=== PATIENT | male | born 2000 | race Caucasian/White ===

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

== ENCOUNTER 2019-08-27 11:29 | Outpatient (CLI) | payer BC, SELFPAY ==
--- NOTE | 2019-08-27 08:35 | DI.RAD_ITS ---
EXAM: XR TIB/FIB LT INDICATION: L TIB FRACTURE. COMPARISON: No exams were available for comparison TECHNIQUE: 2D digital imaging was performed. FINDINGS: An intramedullary harriet is noted through the tibia for fixation of the fracture in the mid to distal 3r d. A posterior splint is in place.
== END 2019-08-27 11:49 ==
PROVIDERS: PCP Specialist/Technologist Athletic Trainer; Visit Provider Student in an Organized Health Care Education/Training Program
DX: S82.225A Nondisplaced transverse fracture of shaft of left tibia, initial encounter for closed fracture (principal); V86.92XA Unspecified occupant of snowmobile injured in nontraffic accident, initial encounter
CPT/HCPCS: 73590

== ENCOUNTER 2019-08-30 10:41 | Outpatient (REF) | payer SELFPAY ==
[2019-08-30 19:28] LABS: Abs Immature Grans 0.02 k/cumm (0.0-0.09); Absolute Basophil Count 0.01 k/cumm (0.0-0.2); Absolute Eosinophil Count 0.22 k/cumm (0.0-0.7); Absolute Lymphocyte Count 0.91 k/cumm (1.2-3.4); Absolute Monocyte Count 0.78 k/cumm (0.11-0.7); Absolute Neutrophil Count 5.95 k/cumm (1.2-6.7); Basophils % 0.1; Eosinophils % 2.8; HCT 38.4 % (40.0-50.0); HGB 13.2 g/dL (13.5-17.5); Immature Grans % 0.3 %; Lymphocytes % 11.5; Mean Corp. HGB Concentration 34.4 g/dL (32.0-36.0); Mean Corpuscular Hemoglobin 28.6 pg (27.0-33.0); Mean Corpuscular Volume 83.3 fL (80-95); Mean Platelet Volume 10.9 fL (8.0-11.0); Monocytes % 9.9; Neutrophils % 75.4; Platelet Count 296 x1000/uL (130-400); RBC 4.61 m/cumm (4.50-6.00); RBC Distribution Width 12.9 % (11.8-14.1); White Blood Cell Count 7.89 k/cumm (4.4-10.8)
[2019-08-30 19:44] LABS: ALT 30 U/L (16-63); AST 12 U/L (15-37); Albumin 4.1 g/dL (3.4-5.0); Alkaline Phosphatase 49 U/L (46-116); Anion Gap 8.5 mmol/L (3-11); BUN 21 mg/dL (7-18); Bilirubin, Total 1.6 mg/dL (0.2-1.0); CO2 28.5 mmol/L (21.0-32.0); CREATININE 0.98 mg/dL (0.70-1.30); Calcium 9.1 mg/dL (8.5-10.1); Chloride 102 mmol/L (98-107); GGT 32 U/L (15-85); Glucose 89 mg/dL (74-106); Potassium 4.2 mmol/L (3.5-5.1); Sodium 139 mmol/L (136-145); Total Protein 7.1 g/dL (6.4-8.2)
== END 2019-08-30 11:01 ==
LOC: NCHCN 10:41
PROVIDERS: PCP Specialist/Technologist Athletic Trainer; Visit Provider Specialist/Technologist Athletic Trainer
DX: R16.1 Splenomegaly, not elsewhere classified (principal)
CPT/HCPCS: 80053; 82977; 85025

== ENCOUNTER 2019-10-04 16:54 | Outpatient (REF) | payer BC, SELFPAY ==
[2019-10-04 19:13] LABS: Abs Immature Grans 0.02 k/cumm (0.0-0.09); Absolute Basophil Count 0.01 k/cumm (0.0-0.2); Absolute Eosinophil Count 0.16 k/cumm (0.0-0.7); Absolute Lymphocyte Count 1.15 k/cumm (1.2-3.4); Absolute Monocyte Count 0.52 k/cumm (0.11-0.7); Absolute Neutrophil Count 6.59 k/cumm (1.2-6.7); Basophils % 0.1; Eosinophils % 1.9; HCT 41.2 % (40.0-50.0); Immature Grans % 0.2 %; Lymphocytes % 13.6; Mean Corpuscular Hemoglobin 28.5 pg (27.0-33.0); Mean Corpuscular Volume 83.9 fL (80-95); Mean Platelet Volume 11.3 fL (8.0-11.0); Monocytes % 6.2; Platelet Count 232 x1000/uL (130-400); RBC 4.91 m/cumm (4.50-6.00); RBC Distribution Width 13.5 % (11.8-14.1); White Blood Cell Count 8.45 k/cumm (4.4-10.8)
[2019-10-04 19:45] LABS: Diff Comment Agrees w/ Instrument
[2019-10-04 19:51] LABS: ALT 26 U/L (16-63); AST 17 U/L (15-37); Albumin 4.5 g/dL (3.4-5.0); Alkaline Phosphatase 70 U/L (46-116); Anion Gap 10.7 mmol/L (3-11); BUN 15 mg/dL (7-18); CO2 29.3 mmol/L (21.0-32.0); CREATININE 1.22 mg/dL (0.70-1.30); Calcium 8.9 mg/dL (8.5-10.1); Chloride 105 mmol/L (98-107); Glucose 107 mg/dL (74-106); Potassium 3.8 mmol/L (3.5-5.1); Sodium 145 mmol/L (136-145)
[2019-10-07 11:29] LABS: HBs Antibody, Qual Negative (See Note); HBs Antibody, Quant <3.1 mIU/mL (See Note); Hepatitis B Core Antibody Negative (Negative); Hepatitis B surface Ag Negative (Negative); Hepatitis C Ab w Rflx HCV PCR Negative (Negative)
[2019-10-07 11:55] LABS: Hep A Total Ab w Rflx IgM Negative (Negative)
[2019-10-08 11:25] LABS: EBV EA IgG Negative (Negative)
== END 2019-10-04 17:14 ==
LOC: NCHCN 16:54
PROVIDERS: PCP Specialist/Technologist Athletic Trainer; Visit Provider Specialist/Technologist Athletic Trainer
DX: R17 Unspecified jaundice (principal); R16.1 Splenomegaly, not elsewhere classified
CPT/HCPCS: 80053; 86663; 86704; 86706; 86709; 86803; 87340; 85025

== ENCOUNTER 2019-10-09 15:55 | Outpatient (CLI) | payer BC, SELFPAY ==
--- NOTE | 2019-10-09 15:45 | DI.RAD_ITS ---
EXAM: XR TIB/FIB LT CLINICAL HISTORY: Follow up TECHNIQUE: 2D digital imaging was performed. COMPARISON: XR TIB/FIB LT from 08/27/2019 FINDINGS: The splint has been removed. An intramedullary harriet is again noted through the tibia for fracture fi xation. There has been no change in fracture alignment. No new abnormalities are seen.
== END 2019-10-09 16:15 ==
PROVIDERS: PCP Specialist/Technologist Athletic Trainer; Visit Provider Student in an Organized Health Care Education/Training Program
DX: S82.225D Nondisplaced transverse fracture of shaft of left tibia, subsequent encounter for closed fracture with routine healing (principal)
CPT/HCPCS: 73590

== ENCOUNTER 2019-10-10 06:52 | Outpatient (CLI) | payer BC, SELFPAY ==
--- NOTE | 2019-10-10 08:05 | DI.US_ITS ---
EXAM: US ABDOMEN CLINICAL HISTORY: F/U CT, SPLENOMEGALY,R16.1 TECHNIQUE: Ultrasound performed using standard protocol. COMPARISON: CT CHEST/ABD/PEL WITH CONTRAST from 08/24/2019 FINDINGS: Liver is normal in size and echogenicity. No focal liver lesions or biliary dilatation is seen. Th e gallbladder has a normal appearance, without evidence of stones or wall thickening. The kidneys, a akira and pancreas are within normal limits. The spleen appears mildly prominent in appearance and me asures 11.9 x 5.7 x 6.6 cm, not significantly changed from the previous CT. No focal splenic lesions are seen. IMPRESSION: Stable mild splenomegaly with no focal abnormality. DATA REPOSITORY:
== END 2019-10-10 07:12 ==
PROVIDERS: PCP Specialist/Technologist Athletic Trainer; Visit Provider Specialist/Technologist Athletic Trainer
DX: R16.1 Splenomegaly, not elsewhere classified (principal)
CPT/HCPCS: 76700

== ENCOUNTER 2019-10-25 11:11 | Outpatient (CLI) | payer BC, SELFPAY ==
--- NOTE | 2019-10-25 11:00 | DI.RAD_ITS ---
EXAM: XR TIB/FIB LT CLINICAL HISTORY: NEW INJURY. TECHNIQUE: 2D digital imaging was performed COMPARISON: XR TIB/FIB LT from 10/09/2019 FINDINGS: BONES: There is increased callus formation about the left tibial fracture. There is again seen an in tramedullary harriet transfixing the tibial fracture. The orthopedic hardware appears stable. No new fr actures or dislocations are present. Visualized portion of knee and ankle joints are unremarkable. SOFT TISSUE: Normal. IMPRESSION: Continued healing of the left tibial fracture. DATA REPOSITORY: RADIATION DOSE DELIVERED:
== END 2019-10-25 11:31 ==
PROVIDERS: PCP Specialist/Technologist Athletic Trainer; Visit Provider Student in an Organized Health Care Education/Training Program
DX: S82.232D Displaced oblique fracture of shaft of left tibia, subsequent encounter for closed fracture with routine healing (principal)
CPT/HCPCS: 73590

== ENCOUNTER 2019-12-10 13:08 | Outpatient (CLI) | payer BC, SELFPAY ==
--- NOTE | 2019-12-10 11:01 | DI.RAD_ITS ---
EXAM: XR TIB/FIB LT CLINICAL HISTORY: fu xray of tib fib TECHNIQUE: COMPARISON: CR XR TIB/FIB LT from 10/25/2019 FINDINGS: Two views were obtained and show intramedullary harriet in place transfixing diaphyseal tibial fracture. There has been no gross interval change in alignment of the fracture fragments in comparison with pr evious examination of October 24. There may be slightly increased callus formation at the fracture s ite. IMPRESSION:
== END 2019-12-10 13:28 ==
PROVIDERS: PCP Specialist/Technologist Athletic Trainer; Visit Provider Student in an Organized Health Care Education/Training Program
DX: S82.232D Displaced oblique fracture of shaft of left tibia, subsequent encounter for closed fracture with routine healing (principal)
CPT/HCPCS: 73590

== ENCOUNTER 2020-02-18 11:07 | Outpatient (CLI) | payer BC, SELFPAY ==
--- NOTE | 2020-02-18 11:00 | DI.RAD_ITS ---
EXAM: XR TIB/FIB LT CLINICAL HISTORY: fu fracture. TECHNIQUE: 2D digital imaging was performed COMPARISON: CR XR TIB/FIB LT from 12/10/2019 FINDINGS: BONES: There is again seen an intramedullary harriet transfixing the left tibial fracture. The fracture line is still visualized. There does appear to be slight increased callus formation present. No new fracture or dislocation is seen. No bony destructive lesion is seen. Visualized portion of knee and ankle joints are unremarkable. SOFT TISSUE: Normal. IMPRESSION: Left tibial fracture as described above. DATA REPOSITORY: RADIATION DOSE DELIVERED:
== END 2020-02-18 11:27 ==
PROVIDERS: PCP Specialist/Technologist Athletic Trainer; Referring Provider Specialist/Technologist Athletic Trainer; Visit Provider Student in an Organized Health Care Education/Training Program
DX: S82.225D Nondisplaced transverse fracture of shaft of left tibia, subsequent encounter for closed fracture with routine healing (principal); X58.XXXD Exposure to other specified factors, subsequent encounter
CPT/HCPCS: 73590

== ENCOUNTER 2020-03-23 07:27 | Outpatient (CLI) | payer BC, SELFPAY ==
[2020-03-24 14:31] LABS: COVID-19 RT-PCR Result NEGATIVE (Negative)
== END 2020-03-23 07:47 ==
PROVIDERS: PCP Specialist/Technologist Athletic Trainer; Visit Provider Student in an Organized Health Care Education/Training Program
DX: Z11.59 Encounter for screening for other viral diseases (principal); Z01.818 Encounter for other preprocedural examination
CPT/HCPCS: U0003

== ENCOUNTER 2020-03-26 06:19 | Day surgery (SDC) | payer BC, SELFPAY ==
[2020-03-26] VITALS (8 sets, daily range): BP systolic 102–131; BP diastolic 51–88; PULSE 63–80; RESP 9–18; TEMP 36–36.7; O2SAT 94–99
[2020-03-26] MEDS: Lactated Ringers 1,000 ML 100 ML IV (07:08)
[2020-03-26] MEDS: ceFAZolin 2 GM/50 ML BAG IVPB (07:26)
--- NOTE | 2020-03-26 08:12 | DI.RAD_ITS ---
EXAM: XR TIB/FIB LT CLINICAL HISTORY: Fracture of tibial shaft, closed; painful hardware TECHNIQUE: COMPARISON: CR XR TIB/FIB LT from 02/18/2020 FINDINGS: C-arm fluoroscopy was utilized by Dr. Bui. Please see Dr. Bui procedure note. Hard copies show removal of 1 of 2 proximal fixation screws and both distal fixation screws associated with a ti bial intramedullary harriet. Fluoro time, 22.5 seconds. IMPRESSION: RADIATION DOSE DELIVERED: Total DLP
--- NOTE | 2020-03-26 08:31 | PDOC.DSDIS_ITS ---
Discharge Plan Disposition Patient Disposition: HOME Condition: Stable Discharge Details Reason For Visit: Left tibia fracture Attending Provider: Demetri Carpenter Primary Care Provider: Eli Anderson V Home Meds and New Rx's Prescriptions: New naproxen 250 mg tablet 250 - 500 mg PO BID PRN (Reason: Moderate pain or swelling) Qty: 30 RF: 0 aspirin 81 mg tablet,delayed release (DR/EC) 81 mg PO DAILY 14 Days Qty: 14 RF: 0 oxycodone 5 mg tablet 5 - 10 mg PO Q4H PRN (Reason: moderate to severe pain) Qty: 7 RF: 0 Continued ENRIQUETA 60 MG tablet 60 mg PO DAILY Qty: 30 RF: 0 Discharge Instructions Additional Instructions: Surgery: Left tibia locking screw removal x3, nail dynamization Activity: Weightbearing as tolerated in supportive work boot or cam walker boot. Recommend ice and elevation to minimize swelling, bruising, and discomfort. Prescriptions: Aspirin 81 mg take 1 daily to prevent a blood clot for 2 weeks Naproxen 250 mg take 1-2 every 12 hours with a meal as needed for moderate pain Oxycodone 5 mg take 1-2 every 4-6 hours as needed for severe pain You may use [id number] Tylenol (acetaminophen) as needed for mild pain. These pain medications may be taken all at once or in different combinations as needed. Also, recommend Colace (docusate) as a stool softener as surgery and pain medicine cause constipation. Dressings: Remove dressing after 3 days. May shower after 5 days. Cover the incisions with Band-Aids or leave them open to air. Follow-up: 10-[address] Carpenter Let us know right away if you develop any redness, drainage, fevers, chest pain, or trouble breathing. Do not drink alcohol or drive for at least 24 hours after anesthesia. Please call the office during business hours with any questions or concerns. Referrals: Demetri Carpenter MD [ [facility] STAFF PHYSICIAN] - Discharge Orders Discharge Orders: Discharge Order (Routine); Ordered 03/26/20 Ordered By: Demetri Carpenter DS: Diagnosis Discharge Diagnosis (1) Painful orthopaedic hardware: Status: Acute (2) Fracture of tibial shaft, closed: Status: Acute
--- NOTE | 2020-03-26 08:37 | ROE_ITS ---
Date of service: 03/26/20 Time of Service: 07:19 Operative Note Operative Note DATE OF PROCEDURE: 03/26/20 PRE-OP DIAGNOSIS: 1. Left distal tibial shaft fracture nonunion 2. Left tibia painful hardware POST-OP DIAGNOSIS: same PROCEDURE: Left tibia removal of deep hardware, CPT # 13069: Removal 3 out of 4 tibial nail locking screws for symptomatic hardware and nail dynamization SURGEON: Demetri Carpenter ANESTHESIA: GETA and local ESTIMATED BLOOD LOSS: 5 COMPLICATIONS: None Patient was transported to: PACU Patient's condition: stable Indications: Please see complete medical record for details. 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 The patient was positioned supine on the operating room table. All bony prominences were well-padded. Preoperative antibiotics were administered. The left leg was prepped and draped in the usual sterile fashion. The correct patient, procedure, and side of the procedure were all verified prior to incision. The planned 3 symptomatic locking screw heads were quite palpable proximally anterior centrally and medial distally. 0.25% bupivacaine containing epinephrine was infiltrated about each. AP and lateral fluoroscopy confirmed wh at looked like continued hypertrophic nonunion at the distal tibial shaft fracture site. Smaller stab incisions through each original incision were used to localize each screw head. Each head was cleaned of soft tissue. The screwdriver was inserted carefully fully into the screw heads in a collinear fashion prior to removing each screw in entirety. No purulence was encountered. There was minimal bleeding. Each bone tunnel was gently curetted. AP and lateral fluoroscopy confirmed complete removal of the desired 3 out of 4 tibial nonlocking screws. Each of the 3 stab incision sites was copiously irrigated with normal saline. Subcutaneous tissue was closed using 3-0 Monocryl in a buried interrupted fashion. Xeroform was placed over each followed by dry 4 x 4 gauze and the leg was wrapped in sterile soft roll and covered in Julián wrap. The patient awoke from anesthesia without complication and was transferred to the recovery room in a stable condition.
== END 2020-03-26 10:15 | disposition home or self-care (01) ==
PROVIDERS: PCP Family Medicine; Visit Provider Student in an Organized Health Care Education/Training Program
PROC: (CPT 20680; principal; 2020-03-26 07:30)
DX: T84.84XA Pain due to internal orthopedic prosthetic devices, implants and grafts, initial encounter (principal); S82.392K Other fracture of lower end of left tibia, subsequent encounter for closed fracture with nonunion
CPT/HCPCS: 20680; 73590; J0690; J1100; J1885; J2250; J2405; J2704

== ENCOUNTER 2020-04-08 14:48 | Outpatient (CLI) | payer BC, SELFPAY ==
--- NOTE | 2020-04-08 14:09 | DI.RAD_ITS ---
EXAM: XR TIB/FIB LT INDICATION: fu removal of hardware. COMPARISON: CR XR TIB/FIB LT from 02/18/2020 TECHNIQUE: 2D digital imaging was performed. FINDINGS: The intramedullary harriet is again noted through the tibia for fracture fixation. The screws in the dis nahum aspect of the tibia and one of the proximal screws have been removed. There has been continued h ealing of the distal tibial fracture. No new abnormalities are seen. DATA REPOSITORY: RADIATION DOSE DELIVERED:
== END 2020-04-08 15:08 ==
PROVIDERS: PCP Family Medicine; Referring Provider Family Medicine; Visit Provider Student in an Organized Health Care Education/Training Program
DX: S82.202D Unspecified fracture of shaft of left tibia, subsequent encounter for closed fracture with routine healing (principal); S82.402D Unspecified fracture of shaft of left fibula, subsequent encounter for closed fracture with routine healing
CPT/HCPCS: 73590

== ENCOUNTER 2020-05-20 15:10 | Outpatient (CLI) | payer BC, SELFPAY ==
--- NOTE | 2020-05-20 14:15 | DI.RAD_ITS ---
EXAM: XR TIB/FIB LT INDICATION: Left side. COMPARISON: CR XR TIB/FIB LT from 08/27/2019 CR XR TIB/FIB LT from 04/08/2020 TECHNIQUE: 2D digital imaging was performed. FINDINGS: There has been no change in fracture or hardware alignment. There has been a further increase in annemarie unt of bony bridging when compared with previous exam DATA REPOSITORY: RADIATION DOSE DELIVERED:
== END 2020-05-20 15:30 ==
PROVIDERS: PCP Family Medicine; Referring Provider Family Medicine; Visit Provider Student in an Organized Health Care Education/Training Program
DX: S82.292A Other fracture of shaft of left tibia, initial encounter for closed fracture (principal)
CPT/HCPCS: 73590

== ENCOUNTER 2023-03-24 18:23 | Outpatient (REF) | payer BC, SELFPAY ==
--- OUTSIDE RECORDS SUMMARY | 2023-03-24 18:27 | XMS_ITS | Continuity of Care Document ---
Author Name Unknown Organization [facility] Address [address] [place] [address] Encounter [facility]TT[facility] FIN NBR [id number] Date(s): 09/27/22 - 09/27/22 [facility] [address] [place] [address]- Encounter Diagnosis Encounter for other administrative examinations(Final) - Discharge Disposition: Home or Self Care Attending Physician: Sedrick Adams Admitting Physician: Sedrick Adams
[2023-03-24 19:05] LABS: ALT 35 U/L (16-63); AST 13 U/L (15-37); Albumin 4.2 g/dL (3.4-5.0); Alkaline Phosphatase 55 U/L (46-116); BUN 21 mg/dL (7-18); Bilirubin, Total 1.4 mg/dL (0.2-1.0); CREATININE 1.2 mg/dL (0.70-1.30); Calcium 9.3 mg/dL (8.5-10.1); Calculated LDL 61 mg/dL (<100); Chloride 105 mmol/L (98-107); Cholesterol 136 mg/dL (<200); Estimated GFR 87.15 (mL/min/1.73m2); Glucose 88 mg/dL (74-106); HDL Cholesterol 57 mg/dL (40-60); Potassium 4.2 mmol/L (3.5-5.1); Sodium 142 mmol/L (136-145); Triglyceride 91 mg/dL (<150)
== END 2023-03-24 18:24 | disposition home or self-care (01) ==
LOC: NCHCN 18:23
PROVIDERS: PCP Family Medicine; Visit Provider Nurse Practitioner Family
DX: Z00.00 Encounter for general adult medical examination without abnormal findings (principal); Z13.220 Encounter for screening for lipoid disorders; Z13.228 Encounter for screening for other metabolic disorders
CPT/HCPCS: 80053; 80061

== ENCOUNTER 2023-05-21 08:53 | Emergency (ER) | payer BC, SELFPAY ==
[2023-05-21 08:58] VITALS: BP 141/94; PULSE 91; RESP 18; TEMP 36.8; O2SAT 99
--- NOTE | 2023-05-21 08:58 | ED.GENADUL_ITS ---
Discharge Plan Disposition Patient Disposition: Home Discharge Details Clinical Impression: Vomiting and diarrhea Primary Care Provider: Eli Anderson V ED Provider: Mansi Garcia Home Meds and New Rx's Prescriptions: New ondansetron 8 mg tablet,disintegrating 8 mg PO Q8H PRN (Reason: nausea and vomiting) Qty: 15 0RF Continued ENRIQUETA 60 MG tablet 60 mg PO DAILY Qty: 30 Discharge Instructions Instructions: Acute Diarrhea (ED), Abdominal Pain (ED) Additional Instructions: Zofran 8 mg under tongue 3 times per day as needed for nausea. You may continue the Imodium as needed for diarrhea. Return to ED for belly pain localized to 1 area, fever of 100.4 or above, any other concerns. Recheck with your primary care doc tomorrow or Monday if not 100%. Medical Decision Making I did discuss appendicitis with the patient although his belly exam is completely benign. He has no rebound or guarding. On reexamination the patient's belly is the same. I will DC him home on Zofran to use as needed. He does feel much better. Of note, he took some Imodium yesterday and said he felt great yesterday. He will observe for localized abdominal pain, fever of 100.4 or above, any other concerns. Lab Data Lab results reviewed: Yes I reviewed the patient's lab results. Lab results narrative: Patient's urine specific gravity is elevated with positive ketones. He has low potassium and magnesium. These will be replenished. HPI General Date/Time Provider Initiated Documentation: 05/21/23 08:57 . HPI Narrative: This 22-year-old male patient presents with a chief complaint of vomiting and diarrhea. The patient tells me that a week ago Monday he ate at [employer]. Shortly thereafter he began having diarrhea. He says he is going 3-4 times a day and it is almost like stephanie water. There is no blood in the stool. He has no recent history of travel out of the country (except for [place] in February for his honeymoon), camping/drinking from streams, or recent antibiotics. He said he has intermittently had some nausea and vomiting and vomited this morning. He does have petechiae around his eyes from this. He says maybe about Monday he had some hot and cold chills before he vomited but that resolved after vomiting. He has not taken his temperature. He has some vague abdominal aching but no real localized pain. He has no pain in his back. He has no dysuria. He says he has had some URI symptoms for the past couple of weeks but these are getting better. He did see his doctor last Monday. He says that he sometimes gets diarrhea and does not feel well and they think he has a sensitivity to something but cannot figure out what it is. He says he has been having trouble sleeping i.e. is just somewhat restless. He has some vague dizziness. The patient does describe some anorexia and says he has had at least 1 day where he did not eat anything. Of note, the patient had a negative flu and COVID test done at his PCPs office on Monday. Related Data Home Medications Medication Instructions Recorded Confirmed Enriqueta 60 mg PO DAILY #30 tabs 11/08/12 05/21/23 ondansetron 8 mg disintegrating 8 mg PO Q8H PRN nausea and 05/21/23 tablet vomiting #15 tabs Previous Rx's Medication Instructions Recorded ondansetron 8 mg disintegrating 8 mg PO Q8H PRN nausea and 05/21/23 tablet vomiting #15 tabs Allergies Allergy/AdvReac Type Severity Reaction Status Date / Time No Known Allergies Allergy Verified 05/21/23 09:01 Review of Systems Constitutional Constitutional: Reports chills, Denies fever(s), Denies headache(s) and Denies weakness Eyes Eyes: Denies diplopia and Reports other (no redness) ENT Ears, Nose, Mouth, and Throat: Denies vertigo, Reports dizziness, Denies otalgia, Denies headache(s), Denies nasal congestion, Denies nasal discharge, Denies neck pain and Denies sore throat Cardiovascular Cardiovascular: Denies chest pain, Denies palpitations and Denies dyspnea Respiratory Respiratory: Denies cough and Denies dyspnea Gastrointestinal Gastrointestinal: Reports abdominal pain, Reports diarrhea, Reports nausea and Reports vomiting Genitourinary Genitourinary: Denies difficulty urinating and Denies dysuria Musculoskeletal Musculoskeletal: Denies myalgias, Denies muscle weakness, Denies neck pain, Denies numbness and Reports other (edema) Integumentary/Breasts Skin/Breast: Denies change in pigmentation and Denies rash Neurologic Neurologic: Denies vertigo, Reports dizziness, Denies headache(s), Denies numbness and Denies weakness Endocrine Endocrine: Denies palpitations PFSH All Active Problems Vomiting and diarrhea (Acute) Fracture of tibial shaft, closed (Acute 08/24/19) S/P ORIF: 08/24/2019 Painful orthopaedic hardware (Acute) S/P removal (03/26/2020 Surgical History S/P ORIF (open reduction internal fixation) fracture Family History Mother Allergic rhinitis Father Allergic rhinitis Grandfather No problems noted. Grandmother Asthma Social History Smoking/Tobacco Use Status: Never Smoking risk assessment performed?: Yes Alcohol Intake: current Alcohol Intake frequency: a few times a week Alcohol type: beer and hard liquor Drug use: Never Substance use type: does not use Current gender identity: male Do you feel safe at home: Yes Do you feel safe in your relationship?: Yes Additional Social history: Unable to assess privatley. Exam Const General: no acute distress, well developed, well groomed and not in acute distress Nutritional Appearance: well nourished Orientation: alert and oriented x3 HENMT Head: normocephalic and atraumatic Ears: external ears normal Mouth: oropharynx normal and moist mucous membranes Throat: posterior oropharynx normal Eyes Conjunctivae: conjunctivae normal Neck Neck: full ROM and supple Chest Chest: normal inspection of the chest Resp Effort & Inspection: normal respiratory effort Auscultation: clear to auscultation bilaterally Cardio Rate: regular rate Rhythm: regular rhythm Heart Sounds: no murmurs and no rubs GI Inspection: normal to inspection Palpation: soft, nontender and other (non distended) Auscultation: normal bowel sounds Skin General skin exam: no rashes or lesions noted and other (pink, warm, dry) Neuro General: patient alert, patient awake and patient oriented x3 Speech: speech normal Motor: other (FELICIANO) Sensory Exam: no sensory deficits noted Extrem General: normal to inspection, full ROM and pedal edema present Psych Mental Status: mental status grossly normal Speech and Movement: speech and movement normal Affect: normal affect
[2023-05-21] MEDS: Normal Saline 1,000 ML 1000 ML IV ×2 (09:28→11:23)
[2023-05-21 09:53] LABS: Abs Immature Grans 0.02 10^3/uL (0.0-0.06); Absolute Basophil Count 0.05 10^3/uL (0.0-0.2); Absolute Eosinophil Count 0.16 10^3/uL (0.0-0.7); Absolute Lymphocyte Count 0.87 10^3/uL (1.2-3.4); Absolute Monocyte Count 0.77 10^3/uL (0.1-0.8); Absolute Neutrophil Count 5.18 10^3/uL (1.2-6.7); Basophils % 0.7; Eosinophils % 2.3; HCT 42.8 % (40.0-50.0); HGB 14.5 g/dL (13.5-17.5); Immature Grans % 0.3; Lymphocytes % 12.3; MCH 27.7 pg (27.0-33.0); MCHC 33.9 % (32.0-36.0); MCV 82 fL (80-95); MPV 10.5 fL (8.0-11.0); Monocytes % 10.9; Neutrophils % 73.5; Platelet Count 305 10^3/uL (130-400); RBC 5.24 10^6/uL (4.36-5.78); RDW 12.8 % (11.8-14.1); RDW-SD 37.8 fL; WBC 7.05 10^3/uL (4.4-10.8)
[2023-05-21 09:55] LABS: Bilirubin Negative (Negative); Blood Negative (Negative); Clarity Clear (Clear); Glucose Negative (Negative); Ketones 15 mg/dL (Negative); Leukocyte Esterase Negative (Negative); Nitrite Negative (Negative); Specific Gravity >= 1.030 (1.005-1.025); Urobilinogen 0.2 mg/dL (Up to 0.2); pH 6.5 (5-8)
[2023-05-21 10:07] LABS: Bacteria Rare HPF (Negative); C & S Indicated? No; Casts 3-5 Fine Granular LPF (Negative); Crystals Rare Amorphous HPF (Negative); Epithelial Cells Rare HPF (Negative); Mucus Trace (Negative); RBC 0-2 HPF (0-2); WBC 0-2 HPF (0-5)
[2023-05-21 10:17] LABS: ALT 87 U/L (16-63); AST 30 U/L (15-37); Albumin 3.9 g/dL (3.4-5.0); Alkaline Phosphatase 60 U/L (46-116); Anion Gap 9.1 mmol/L (3-11); BUN 13 mg/dL (7-18); CO2 25.9 mmol/L (21.0-32.0); CREATININE 1.1 mg/dL (0.70-1.30); Chloride 104 mmol/L (98-107); Estimated GFR 96.74 (mL/min/1.73m2); Glucose 102 mg/dL (74-106); Lipase 47 U/L (16-77); Magnesium 1.7 mg/dL (1.8-2.4); Potassium 3.2 mmol/L (3.5-5.1); Sodium 139 mmol/L (136-145); Total Protein 7.2 g/dL (6.4-8.2)
[2023-05-21] MEDS: Potassium Chloride 20 MEQ TABCR 40 MEQ PO (11:09)
[2023-05-21] MEDS: MAGNESIUM SULFATE 1 GM/100 ML BAG IVPB (11:23)
--- NOTE | 2023-05-21 12:07 | W.ED.GENAD ---
Discharge Plan Disposition Patient Disposition: Home Discharge Details Clinical Impression: Vomiting and diarrhea Primary Care Provider: Eli Anderson V ED Provider: Mansi Garcia Home Meds and New Rx's Prescriptions: New ondansetron 8 mg tablet,disintegrating 8 mg PO Q8H PRN (Reason: nausea and vomiting) Qty: 15 0RF Continued ENRIQUETA 60 MG tablet 60 mg PO DAILY Qty: 30 Discharge Instructions Instructions: Acute Diarrhea (ED), Abdominal Pain (ED) Additional Instructions: Zofran 8 mg under tongue 3 times per day as needed for nausea. You may continue the Imodium as needed for diarrhea. Return to ED for belly pain localized to 1 area, fever of 100.4 or above, any other concerns. Recheck with your primary care doc tomorrow or Monday if not 100%. Medical Decision Making The patient feels much better after IV fluid, potassium, and magnesium in the ED. P.o. trial was successful. Repeat abdominal exam was unchanged and benign. The patient knows to return for localized belly pain, fever of 100.4 or above, any other concerns. He will get a recheck with his PCP tomorrow or Monday if not back to 100%. Lab Data Lab results reviewed: Yes I reviewed the patient's lab results. Lab results narrative: low K and Mag with elevated SG and ketones, nl glu. HPI General Date/Time Provider Initiated Documentation: 05/21/23 08:57. Related Data Home Medications Medication Instructions Recorded Confirmed Enriqueta 60 mg PO DAILY #30 tabs 11/08/12 05/21/23 ondansetron 8 mg disintegrating 8 mg PO Q8H PRN nausea and 05/21/23 tablet vomiting #15 tabs Previous Rx's Medication Instructions Recorded ondansetron 8 mg disintegrating 8 mg PO Q8H PRN nausea and 05/21/23 tablet vomiting #15 tabs Allergies Allergy/AdvReac Type Severity Reaction Status Date / Time No Known Allergies Allergy Verified 05/21/23 09:01 General Stated Complaint: Nausea/Vomit/Diar FLASH: 3 PFSH All Active Problems Vomiting and diarrhea (Acute) Fracture of tibial shaft, closed (Acute 08/24/19) S/P ORIF: 08/24/2019 Painful orthopaedic hardware (Acute) S/P removal (03/26/2020 Surgical History S/P ORIF (open reduction internal fixation) fracture Family History Mother Allergic rhinitis Father Allergic rhinitis Grandfather No problems noted. Grandmother Asthma Social History Smoking/Tobacco Use Status: Never Smoking risk assessment performed?: Yes Alcohol Intake: current Alcohol Intake frequency: a few times a week Alcohol type: beer and hard liquor Drug use: Never Substance use type: does not use Current gender identity: male Do you feel safe at home: Yes Do you feel safe in your relationship?: Yes Additional Social history: Unable to assess privatley. Course Vital Signs Vital signs: Vital Signs Temperature 36.8 C 05/21/23 08:58 Pulse 91 H 05/21/23 08:58 Respiratory Rate 18 05/21/23 08:58 Blood Pressure 141/94 H 05/21/23 08:58 Pulse Oximetry 99 05/21/23 08:58 Temperature 36.8 C 05/21/23 08:58 Temperature Source Oral 05/21/23 08:58 Pulse 91 H 05/21/23 08:58 Respiratory Rate 18 05/21/23 08:58 Respiratory Effort Normal 05/21/23 09:00 Blood Pressure 141/94 H 05/21/23 08:58 Blood Pressure Position Sitting 05/21/23 08:58 Pulse Oximetry 99 05/21/23 08:58 Oxygen Delivery Method Room Air 05/21/23 08:58 Oxygen Flow Rate 0 05/21/23 08:58 Pain Level 0 05/21/23 08:58 Lab/Test Results Lab/Test Results: Laboratory Tests Range/Units 05/21/23 05/21/23 09:06 09:30 WBC (4.4-10.8) 10^3/uL 7.05 RBC (4.36-5.78) 10^6/uL 5.24 Hgb (13.5-17.5) g/dL 14.5 Hct (40.0-50.0) % 42.8 MCV (80-95) fL 82 MCH (27.0-33.0) pg 27.7 MCHC (32.0-36.0) % 33.9 RDW (11.8-14.1) % 12.8 Plt Count (130-400) 10^3/uL 305 MPV (8.0-11.0) fL 10.5 Immature Gran % 0.3 Neutrophils % 73.5 Lymphocytes % 12.3 Monocytes % 10.9 Eosinophils % 2.3 Basophils % 0.7 Nucleated RBC % (0.0-0.3) % 0.0 Absolute Neutrophils (1.2-6.7) 10^3/uL 5.18 Absolute Lymphocytes (1.2-3.4) 10^3/uL 0.87 L Absolute Monocytes (0.1-0.8) 10^3/uL 0.77 Absolute Eosinophils (0.0-0.7) 10^3/uL 0.16 Absolute Basophils (0.0-0.2) 10^3/uL 0.05 Sodium (136-145) mmol/L 139 Potassium (3.5-5.1) mmol/L 3.2 L Chloride (98-107) mmol/L 104 Carbon Dioxide (21.0-32.0) mmol/L 25.9 Anion Gap (3-11) mmol/L 9.1 BUN (7-18) mg/dL 13 Creatinine (0.70-1.30) mg/dL 1.1 Est GFR (CKD-EPI 2020) (mL/min/1.73m2) 96.74 Glucose (74-106) mg/dL 102 Calcium (8.5-10.1) mg/dL 9.0 Magnesium (1.8-2.4) mg/dL 1.7 L Total Bilirubin (0.2-1.0) mg/dL 1.0 AST (15-37) U/L 30 ALT (16-63) U/L 87 H Alkaline Phosphatase (46-116) U/L 60 Total Protein (6.4-8.2) g/dL 7.2 Albumin (3.4-5.0) g/dL 3.9 Lipase (16-77) U/L 47 Urine Color (Yellow) Yellow Urine Clarity (Clear) Clear Urine pH (5-8) 6.5 Ur Specific [place] (1.005-1.025) >= 1.030 H Urine Protein (Negative) mg/dL 30 H Urine Ketones (Negative) mg/dL 15 H Urine Blood (Negative) Negative Urine Nitrite (Negative) Negative Urine Bilirubin (Negative) Negative Urine Urobilinogen (Up to 0.2) mg/dL 0.2 Ur Leukocyte Esterase (Negative) Negative Urine RBC (0-2) HPF 0-2 Urine WBC (0-5) HPF 0-2 Ur Epithelial Cells (Negative) HPF Rare Urine Crystals (Negative) HPF Rare Amorphous Urine Bacteria (Negative) HPF Rare Urine Casts (Negative) LPF 3-5 Fine Granular Urine Mucus (Negative) Trace Ur Culture Indicated? No Urine Glucose (Negative) mg/dL Negative
[2023-05-21 12:13] VITALS: BP 121/60; PULSE 90; O2SAT 99
== END 2023-05-21 12:18 | disposition home or self-care (01) ==
PROVIDERS: Emergency Provider Emergency Medicine; PCP Family Medicine
DX: R11.2 Nausea with vomiting, unspecified (principal); R19.7 Diarrhea, unspecified; E87.6 Hypokalemia; E83.42 Hypomagnesemia
CPT/HCPCS: 36415; 80053; 83690; 96361; 96365; 96375; 99284; 81003; 81015; 83735; 85025; J3475